=== PATIENT | female | born 1975 | race Hispanic/Latino ===

== ENCOUNTER 2016-12-21 13:58 | Emergency (ER) | payer OTHER ==
[~2016-12-21] VITALS: Ht 154.9 cm; Wt 68.2 kg
[~2016-12-21 13:58] MED LIST: DICY10CA13 PO; OMEP10CA2 PO; PEG4000S3 PO; SERT100T9 PO; TRAM50TA2 PO
[2016-12-21 14:01] VITALS: BP 142/99; PULSE 95; RESP 16; O2SAT 100
[2016-12-21] MEDS ORDERED: ELET40TA9 AD (14:08)
[2016-12-21] MEDS ORDERED: OMEP20CA11 PO (14:08)
[2016-12-21] MEDS ORDERED: DULO60CA42 PO (14:08)
[2016-12-21] MEDS ORDERED: BUPR-97 PO (14:08)
[2016-12-21] MEDS ORDERED: DICL100G30 TOP (14:08)
[2016-12-21] MEDS ORDERED: RES15 PO (14:08)
--- NOTE | 2016-12-21 15:05 | ED.REPORT ---
HPI-Abd Pain F 40 and Over Date of Service Dec 21, 2016 ED Provider: Tam Mccracken DO The patient is a 41 year old female with history of diverticulitis s/p partial colectomy, and chronic constipation, who presents to the emergency department complaining of lower abdominal pain that began last night. She has also noticed intermittent diarrhea and constipation, and abdominal bloating. She notes hard palate E stool with associated mixed diarrhea. She denies fever, chills, vomiting, bloody stools, melena, dysuria or urinary symptoms. Nursing Notes Stated Complaint: LOWER ABDOMINAL PAIN Chief Complaint: Female Abdominal Pain Nursing Notes Reviewed: Yes Allergies: Coded Allergies: morphine (Verified Allergy, Severe, Rash,Itching,, 12/21/16) Scheduled Bupropion ER (Wellbutrin XL) 150 Mg Tab.er.24h 150 MG PO DAILY Diclofenac Sodium (Diclofenac Sodium) 1 % Gel..gram. 1 APPLIC TOP HS Duloxetine (Cymbalta) 60 Mg Capsule.dr 60 MG PO DAILY Omeprazole (Omeprazole) 20 Mg Capsule.dr 20 MG PO DAILY Polyethylene Glycol 3350 (Miralax) 17 Gm Powd.pack 17 GM PO DAILY Scheduled PRN Eletriptan HBr (Relpax) 40 Mg Tablet 1 TAB AD DAILY PRN PRN Headache Temazepam (Temazepam) 15 Mg Capsule 15 MG PO HS PRN PRN For Insomnia Tramadol (Tramadol) 50 Mg Tablet 50 MG PO Q4 PRN PRN For Pain General Time Seen by MD: 14:41 Chief Complaint Abdominal pain Hx Obtained From: Patient Arrived By: Walk-in Sudden in Onset?: Yes Onset Occurred: Yesterday Symptom Duration: Since onset Progression since Onset: Constant Location: : Abdomen lower Quality: Painful Severity: Current: Moderate Severity: Maximum: Moderate Recent Healthcare: No recent hospitalization Similar Sx Previous: Yes Past Medical History Past Medical History Pedal edema Endometriosis Sleep apnea IBS Diverticulitis Anxiety Hx of previous suicide attempt Reports: Depression, Migraines, Urinary tract infection Past Surgical History Partial colectomy Complete hysterectomy Reports: Appendectomy, Hysterectomy Family History Noncontributory Smoking History Current Every Day Smoker Social History The patient recently moved to the area from [place], [place]. Alcohol Use: "Social" Drug Use: Denies drug use Other Social History: Good social support, Local resident Ambulatory Status Independent Review of Systems Constitutional: Denies: Chills, Fever GI: Reports: Abdominal pain, Constipation, Diarrhea, Denies: Bloody/tarry stool, Hematemesis, Hematochezia, Melena, Nausea, Vomiting Female: Denies: Dysuria, Hematuria, Urinary frequency, Urinary urgency, Urination decreased, Urination increased Complete sys rev & neg: except as marked. Physical Exam Vital Signs Vital Signs (First) Date Time Temp Pulse Resp B/P Pulse Ox O2 Delivery O2 Flow Rate FiO2 12/21/16 14:01 36.3 95 16 142/99 100 Room Air Initial VS: Reviewed Head / Eyes: Atraumatic, Normocephalic, PERRL ENT: Mucous membranes moist, Conjunctiva normal, No scleral icterus Neck: Supple, Non-tender, Full range of motion Lymphatic: No lymphadenopathy Extremities: Vascular intact, Neuro intact, No swelling, No tenderness Skin: Warm, Dry, No cyanosis Neurologic: Alert, Oriented, Nonfocal Psychiatric: Mood/affect normal, Behavior normal, Normal thought content General/Constitutional: Awake, Alert Respiratory / Chest: Breath sounds NL, Breath sounds = bilat, No respiratory distress, No rales, No rhonchi, No wheezing, No stridor Cardiovascular: Heart rate NL, Regular rhythm, Heart sounds NL, Peripheral circulation NL Abdomen: Soft, No guarding, No rebound, BS normoactive, No distention, No hernia, No palpable mass, No pulsatile mass Lower abdominal tenderness Back: Inspection NL Re-Eval/Medical Decision Med Decision/Clinical Course Overall clinical history and prior records suggest a history of chronic constipation with probably acute exacerbation. She does not have an active bowel regimen at this time. She is given a bottle of magnesium citrate now, I recommended MiraLAX daily and a mineral oil enema. Her abdominal exam is benign without focal rebound guarding or significant tenderness and she will attempt a bowel regimen and either return to the ER if worse or follow-up with her GI doctor early next week. Source of Hx: Old records Re-Evaluation/Progress : Time of Eval: 15:25 Re-Evaluation/Progress Note: Rechecked the patient. She reports having more hard pellet stools versus diarrhea. She believes her symptoms are more consistent with her chronic constipation. Discussed plan for bowel prep and discharge. All questions were addressed. Counseled Regarding: Diagnosis, Need for follow-up, When/why to return to ED Discharge & Departure Primary Impression: Constipation Constipation type: unspecified constipation type Qualified Code: K59.00 - Constipation, unspecified Disposition: Home Discharge Condition All VS Reviewed: Yes Condition: Improved Patient Instructions: Constipation (ED), Diverticulitis (ED) Additional Instructions: Thank you for entrusting us with your care today. Your history and physical exam findings are consistent with constipation. Start taking the Miralax once daily until you are having regular soft stools then you can decrease this to once every 1-3 days as needed. Use the mineral oil enema tonight. Call your regular doctor on Friday to schedule a followup appointment. Please return to the emergency department if you develop increased pain, vomiting, fever, or any other new or concerning symptoms. Referrals: Argelia Bolden (PCP) Scribe Attestation Portions of this note were transcribed by Magalie Richards. I, Dr. Mccracken personally performed the history, physical exam and medical decision-making; I reviewed and confirmed the accuracy of the information in the transcribed note. Signed by: Phil Stearns, 12/21/2016 at 1545. copies to: Argelia Bolden Timothy S DO Dec 21, 2016 15:05 Magalie Richards Dec 21, 2016 15:07
[2016-12-21] MEDS ORDERED: POLY17PO6 PO (15:33)
[2016-12-21 15:51] VITALS: BP 131/93; PULSE 105; RESP 18; O2SAT 98
== END 2016-12-21 15:52 | disposition home or self-care (01) ==
LOC: SED 13:58
DX: K59.00 Constipation, unspecified (principal); F17.200 Nicotine dependence, unspecified, uncomplicated; Z90.710 Acquired absence of both cervix and uterus; Z88.5 Allergy status to narcotic agent

== ENCOUNTER 2016-12-26 11:25 | Emergency (ER) | payer OTHER ==
[~2016-12-26] VITALS: Ht 154.9 cm; Wt 68.2 kg
[~2016-12-26 11:25] MED LIST changes: +BUPR-97 PO; +DICL100G30 TOP; -DICY10CA13 PO; +DULO60CA42 PO; +ELET40TA9 AD; -OMEP10CA2 PO; +OMEP20CA11 PO; -PEG4000S3 PO; +POLY17PO6 PO; +RES15 PO; -SERT100T9 PO
[2016-12-26 11:42] VITALS: BP 136/87; PULSE 94; RESP 16; O2SAT 98
[2016-12-26] MEDS ORDERED: PREG75CA PO (11:46)
[2016-12-26 12:13] LABS: BASOPHILS % (AUTO) 0.1 % (0-3); EOSINOPHILS % (AUTO) 2.2 % (0-5); MONOCYTES % (AUTO) 4.5 % (4-12); Mean Corpuscular Hemoglobin 29.9 pg (27.0-35.0); Mean Corpuscular Volume 92.1 fL (81-100); NEUTROPHILS % (AUTO) 66.2 % (40-74); Platelet Count 296 bil/L (150-400)
--- NOTE | 2016-12-26 14:14 | ED.REPORT ---
HPI-Abd Pain F 40 and Over Date of Service Dec 26, 2016 ED Provider: Doc,Ed MD History of Present Illness: 41yo female with ongoing LLQ abdominal pain x 1 week. Worse in past 2-3 days. She was seen in this ED on 12/21, treated symptomatically for constipation. She has a history of colectomy due to diverticulitis. Her pain today feels similar to previous exacerbations of diverticulitis. Nursing Notes Stated Complaint: LOWER LEFT ABDOMINAL PAIN Chief Complaint: Female Abdominal Pain Nursing Notes Reviewed: Yes Allergies: Coded Allergies: morphine (Verified Allergy, Severe, Rash,Itching,, 12/26/16) Scheduled Amoxicillin/Clav K 500-125 mg (Augmentin 500) 1 Tab Tab 1 TABLET PO TID Bupropion ER (Wellbutrin XL) 150 Mg Tab.er.24h 150 MG PO DAILY Diclofenac Sodium (Diclofenac Sodium) 1 % Gel..gram. 1 APPLIC TOP HS Duloxetine (Cymbalta) 60 Mg Capsule.dr 60 MG PO DAILY Omeprazole (Omeprazole) 20 Mg Capsule.dr 20 MG PO DAILY Polyethylene Glycol 3350 (Miralax) 17 Gm Powd.pack 17 GM PO DAILY Pregabalin (Lyrica) 75 Mg Capsule 75 MG PO BID Scheduled PRN Hydrocodone-Acetaminophen 5-325 mg (Hydrocodone-Acetaminophen 5-325 mg) 1 Each Tablet 1 TABLET PO QID PRN PRN For Pain Temazepam (Temazepam) 15 Mg Capsule 15 MG PO HS PRN PRN For Insomnia Tramadol (Tramadol) 50 Mg Tablet 50 MG PO Q4 PRN PRN For Pain General Time Seen by MD: 14:13 Chief Complaint Abdominal pain Hx Obtained From: Patient Arrived By: Walk-in Sudden in Onset?: No Onset Occurred: 1 week ago Symptom Duration: Waxes and wanes Progression since Onset: Gradually worsening Location: : LLQ Quality: Same as prior Radiation: : Does not radiate Severity: Current: Moderate Severity: Maximum: Severe Associated with: Reports: Constipation, Denies: Diarrhea, Fever, Nausea, Vomiting Pertinent Negative: Pt denies other symptoms Recent Healthcare: Recent doctor visit Similar Sx Previous: Yes Risk Factors )( AAA Risk Stratification Risk factors reviewed Ectopic Risk Stratification No risk factors CAD Risk Stratification Risk factors reviewed TAD Risk Stratification Risk factors N/A Past Medical History Past Medical History Pedal edema Endometriosis Sleep apnea IBS Diverticulitis Anxiety Hx of previous suicide attempt Reports: Depression, Migraines, Urinary tract infection Past Surgical History Partial colectomy Complete hysterectomy Reports: Appendectomy, Hysterectomy Family History Noncontributory Smoking History Current Every Day Smoker Social History The patient recently moved to the area from [place], [place]. Alcohol Use: "Social" Drug Use: Denies drug use Other Social History: Good social support, Local resident Ambulatory Status Independent Review of Systems Constitutional: Denies: Chills, Fever Cardiovascular: Denies: Chest pain GI: Reports: Abdominal pain, Constipation, Denies: Nausea, Vomiting Female: Denies: Flank pain Musculoskeletal: Denies: Back pain Complete sys rev & neg: except as marked. Physical Exam Vital Signs Vital Signs (First) Date Time Temp Pulse Resp B/P Pulse Ox O2 Delivery O2 Flow Rate FiO2 12/26/16 11:42 36.4 94 16 136/87 98 Room Air Initial VS: Vital signs normal General/Constitutional: Awake, Alert, No acute distress, Well hydrated, Well nourished, Not toxic appearing Respiratory / Chest: Breath sounds NL, Breath sounds = bilat, No respiratory distress Cardiovascular: Heart rate NL, Regular rhythm, Heart sounds NL Abdomen: BS normoactive Tenderness/Guarding/Rebound: Positive: Guarding voluntary, Tender LLQ... ( Moderate) Interpretation & Diagnostics Lab Results Interpretation Result Diagram: 12/26/16 1200 12/26/16 1200 Test 12/26/16 12:00 12/26/16 14:47 White Blood Count 16.6th/mm3 (3.8-10.1) Red Blood Count 4.05mil/mm3 (3.90-5.20) Hemoglobin 12.1g/dL (12.0-15.6) Hematocrit 37.3% (35.0-46.0) Mean Corpuscular Volume 92.1fL (81-100) Mean Corpuscular Hemoglobin 29.9pg (27.0-35.0) Mean Corpuscular Hemoglobin Concent 32.4% (32.0-37.0) Red Cell Distribution Width 14.5% (12.3-15.4) Platelet Count 296bil/L (150-400) Neutrophils (%) (Auto) 66.2% (40-74) Lymphocytes (%) (Auto) 26.8% (14-46) Monocytes (%) (Auto) 4.5% (4-12) Eosinophils (%) (Auto) 2.2% (0-5) Basophils (%) (Auto) 0.1% (0-3) Sodium Level 135mEq/L (134-144) Potassium Level 4.2mEq/L (3.5-5.2) Chloride Level 101mEq/L (97-108) Carbon Dioxide Level 19mmol/L (18-29) Blood Urea Nitrogen 14mg/dL (6-24) Creatinine 0.57mg/dL (0.57-1.00) Estimat Glomerular Filtration Rate 166mL/min (>59) Glucose Level 106mg/dL (60-99) Calcium Level 9.1mg/dL (8.5-10.1) Magnesium Level 2.0mg/dL (1.6-2.6) Total Bilirubin 0.2mg/dL (0.0-1.2) Aspartate Amino Transf (AST/SGOT) 14U/L (0-50) Alanine Aminotransferase (ALT/SGPT) 12U/L (0-32) Alkaline Phosphatase 101U/L (25-150) Total Protein 6.6g/dL (6.4-8.4) Albumin 3.9g/dL (3.4-5.0) Lipase 68U/L (13-60) Hold Mayo Top Tube Received (Received) Urine Color Straw (YELLOW) Urine Appearance Hazy (CLEAR,HAZY) Urine pH 6.0 (5.0-8.0) Urine Specific [place] 1.005 (1.003-1.035) Urine Protein Negativemg/dL (NEG,TRACE) Urine Glucose (UA) Negativemg/dL (NEGATIVE) Urine Ketones Negativemg/dL (NEGATIVE) Urine Occult Blood Negative (NEGATIVE) Urine Nitrite Negative (NEGATIVE) Urine Bilirubin Negative (NEGATIVE) Urine Urobilinogen Normalmg/dL (NORMAL) Urine Leukocyte Esterase Negative (NEGATIVE) Urine RBC 0-2/hpf (0-2) Urine WBC 0-5/hpf (0-5) Urine Epithelial Cells Occasional/hpf (NONE-MOD) Urine Crystals None seen (NONE SEEN) Urine Bacteria None/hpf (NONE-FEW) Urine Hyaline Casts None/lpf (NONE) Urine Granular Casts None seen (NONE SEEN) Urine Waxy Casts None seen (NONE SEEN) Urine Red Blood Cell Casts None seen (NONE SEEN) Urine White Blood Cell Casts None seen (NONE SEEN) Urine Mucus None seen (None Seen) Urine Trichomonas None seen (NONE SEEN) Urine Yeast None (NONE SEEN) Urinalysis Comment None Urine Culture Reflexed Not indicated CT Abd / Pelvis Interpretation PROCEDURE: CT ABDOMEN AND PELVIS WITH CONTRAST ([id number]) INDICATIONS: LLQ pain, worsening TECHNIQUE: After the administration of oral and intravenous contrast, 5 mm thick sections acquired from the diaphragms to the symphysis. 5 mm thick coronal and sagittal reformats were performed. For radiation dose reduction, the following was used: automated exposure control, adjustment of mA and/or kV according to patient size. COMPARISON: [facility], CT, CT ABD PELVIS W CON, 07/06/2016, 19:52. FINDINGS: Image quality: Excellent. ABDOMEN: Lung bases: Lung bases are clear. Heart size is normal. Solid organs: There is hypoattenuation of the liver consistent with fatty infiltration as well as a small region of focal fatty change anteriorly in the left hepatic lobe. The gallbladder is surgically absent. There is mild biliary ductal dilatation likely related to prior cholecystectomy. The spleen is normal in size. Pancreas enhances normally. No adrenal nodules. Kidneys are normal in size and enhancement, without hydronephrosis. Peritoneum and bowel: Stomach, small bowel, and colon loops are normal in caliber and wall thickness. There are surgical clips adjacent to the cecum likely related to prior appendectomy. Colonic diverticula are demonstrated without acute diverticulitis. There is mild to moderate colonic stool distention which may reflect constipation. No free fluid or air. Nodes and vessels: No retroperitoneal or mesenteric adenopathy. Aorta and inferior vena cava are normal in caliber. Miscellaneous: No ventral hernias. There are postsurgical changes within the anterior abdominal wall. PELVIS: Genitourinary: Bladder wall thickness is normal. Miscellaneous: No inguinal hernias or adenopathy. Bones: No suspicious bony lesions. No vertebral body compression fractures. IMPRESSION: 1. Diverticulosis without acute diverticulitis. 2. Mild to moderate colonic stool distention may reflect constipation. 3. Hepatic steatosis. 4. Mild biliary ductal dilatation likely related to prior cholecystectomy. Re-Eval/Medical Decision Med Decision/Clinical Course Pt's labs/CT reviewed with Dr. Bucio who concurs with plan to treat empirically for diverticulitis. Counseled Regarding: Diagnosis, Lab results, Need for follow-up, When/why to return to ED Discharge & Departure Primary Impression: Lower abdominal pain Additional Impression: Diverticulosis Diverticulosis site: diverticulosis of large intestine Diverticulosis bleeding: diverticulosis without bleeding Qualified Code: K57.30 - Diverticulosis of large intestine without perforation or abscess without bleeding Disposition: Home Patient Instructions: Acute Abdominal Pain (ED) Additional Instructions: High fiber diet, continue meds for constipation. Pleaese take antibiotic as directed, and use an over the counter probiotic for 1 week beyond end of antibiotics. Use pain meds sparingly, as they are constipating. Return to ER if anything worsens. Referrals: Lilli Costa (PCP) 2-3 days recheck EDSupervising Provider for APC: Stanislav Bucio MD copies to: Lilli Costa Christopher R PAC Dec 26, 2016 14:14
[2016-12-26] MEDS ORDERED: 0.9% Sodium Chloride 1,000 ML IV ONE (14:27)
[2016-12-26] MEDS ORDERED: Ondansetron 2 mg/mL 2 mL Inj IVPUSH ONE (14:30)
[2016-12-26] MEDS: HYDROmorphone 0.5 mg/0.5 mL iSecure Syringe IVPUSH PRN ×3 (14:39→15:32)
--- NOTE | 2016-12-26 15:02 | DRSVH ---
PROCEDURE: CT ABDOMEN AND PELVIS WITH CONTRAST ([id number]) INDICATIONS: LLQ pain, worsening TECHNIQUE: After the administration of oral and intravenous contrast, 5 mm thick sections acquired from the diap hragms to the symphysis. 5 mm thick coronal and sagittal reformats were performed. For radiation do se reduction, the following was used: automated exposure control, adjustment of mA and/or kV accordi ng to patient size. COMPARISON: [facility], CT, CT ABD PELVIS W CON, 07/06/2016, 19:52. FINDINGS: Image quality: Excellent. ABDOMEN: Lung bases: Lung bases are clear. Heart size is normal. Solid organs: There is hypoattenuation of the liver consistent with fatty infiltration as well as a s mall region of focal fatty change anteriorly in the left hepatic lobe. The gallbladder is surgically absent. There is mild biliary ductal dilatation likely related to prior cholecystectomy. The splee n is normal in size. Pancreas enhances normally. No adrenal nodules. Kidneys are normal in size an d enhancement, without hydronephrosis. Peritoneum and bowel: Stomach, small bowel, and colon loops are normal in caliber and wall thickness . There are surgical clips adjacent to the cecum likely related to prior appendectomy. Colonic dive rticula are demonstrated without acute diverticulitis. There is mild to moderate colonic stool diste ntion which may reflect constipation. No free fluid or air. Nodes and vessels: No retroperitoneal or mesenteric adenopathy. Aorta and inferior vena cava are no rmal in caliber. Miscellaneous: No ventral hernias. There are postsurgical changes within the anterior abdominal wal l. PELVIS: Genitourinary: Bladder wall thickness is normal. Miscellaneous: No inguinal hernias or adenopathy. Bones: No suspicious bony lesions. No vertebral body compression fractures. IMPRESSION: 1. Diverticulosis without acute diverticulitis. 2. Mild to moderate colonic stool distention may reflect constipation. 3. Hepatic steatosis. 4. Mild biliary ductal dilatation likely related to prior cholecystectomy. Dictated by: Jamel Low M.D. on 12/26/2016 at 14:54 Approved by: Jamel Low M.D. on 12/26/2016 at 15:00
[2016-12-26 15:06] LABS: APPEARANCE,URINE HAZY (CLEAR,HAZY); COLOR,URINE STRAW (YELLOW); OCCULT BLOOD,URINE NEGATIVE (NEGATIVE); UROBILINOGEN,URINE NORMAL (NORMAL)
[2016-12-26] MEDS ORDERED: HYDR-4003 PO (16:13)
[2016-12-26] MEDS ORDERED: AMOX1TAB11 PO (16:13)
[2016-12-26 16:26] VITALS: BP 118/81; PULSE 72; RESP 18; O2SAT 99
== END 2016-12-26 16:27 | disposition home or self-care (01) ==
LOC: SED 11:25
DX: K57.30 Diverticulosis of large intestine without perforation or abscess without bleeding (principal); F17.200 Nicotine dependence, unspecified, uncomplicated; Z87.440 Personal history of urinary (tract) infections; Z88.5 Allergy status to narcotic agent
CPT/HCPCS: 36415; 74177; 80053; 81000; 83690; 83735; 85025; 96361; 96374; 96375; 99285; J1170; J2405; J7030; Q9967

== ENCOUNTER 2016-12-27 07:46 | Day surgery (SDC) | payer OTHER ==
[~2016-12-27 07:46] MED LIST changes: +AMOX1TAB11 PO; -ELET40TA9 AD; +HYDR-4003 PO; +PREG75CA PO
[2016-12-27] MEDS ORDERED: 0.9% Sodium Chloride 500 ML IV ONE (08:35)
[2016-12-27] MEDS ORDERED: MetoCLOpramide 5 mg/mL 2 mL Inj IVPUSH PRN (08:35)
[2016-12-27] MEDS ORDERED: 0.9% Sodium Chloride 500 ML IV PRN (08:40)
[2016-12-27] MEDS ORDERED: SODIUM CHLORIDE 0.9% IV PRN (09:10)
[2016-12-27] MEDS ORDERED: VALPROATE SODIUM IV PRN (09:10)
== END 2016-12-27 23:59 | disposition home or self-care (01) ==
LOC: MOCO 07:46
PROVIDERS: ATTEND Psychiatry & Neurology Neurology
DX: G43.901 Migraine, unspecified, not intractable, with status migrainosus (principal); J32.8 Other chronic sinusitis; I10 Essential (primary) hypertension; F32.9 Major depressive disorder, single episode, unspecified; F17.210 Nicotine dependence, cigarettes, uncomplicated; G89.29 Other chronic pain; Z86.010 Personal history of colon polyps; Z79.890 Hormone replacement therapy; Z90.710 Acquired absence of both cervix and uterus; Z53.9 Procedure and treatment not carried out, unspecified reason

== ENCOUNTER 2017-01-18 13:00 | Emergency (ER) | payer OTHER ==
[~2017-01-18] VITALS: Ht 154.9 cm; Wt 68.2 kg
[2017-01-18 13:13] VITALS: BP 144/101; PULSE 94; RESP 18; O2SAT 100
--- NOTE | 2017-01-18 13:29 | ED.REPORT ---
HPI-Abd Pain F 40 and Over Date of Service January 18, 2017 ED Provider: [facility] is [facility] 41 year [facility] female with history of diverticulitis s/p partial colectomy, anxiety and depression with prior suicidal attempt, who presents to [facility] ED with intermittent LLQ abdominal pain accompanied by nausea x 1 week. She has been seen in ED multiple times in the past for the same problem and treatment of constipation. Her last ED visit was on 12/26/16 for LLQ abdominal pain. She has a GI doctor in [place], Dr. Carranza, whom she sees regularly. She is due for colonoscopy with him soon. Patient denies fever, chills, vomiting. She states that physical activity makes the pain worse. Pain medications, such as Tramadol makes it better. Patient also reports lifting heavy boxes while for 3 days prior to symptom onset. Nursing Notes Stated Complaint: LOWER LT ABD PAIN,HEADACHE Chief Complaint: Female Abdominal Pain Nursing Notes Reviewed: Yes Allergies: Coded Allergies: morphine (Verified Allergy, Severe, Rash,Itching,, 12/26/16) Scheduled Amoxicillin/Clav K 500-125 mg (Augmentin 500) 1 Tab Tab 1 TABLET PO TID Bupropion ER (Wellbutrin XL) 150 Mg Tab.er.24h 150 MG PO DAILY Ciprofloxacin (Ciprofloxacin) 500 Mg Tablet 500 MG PO BID Diclofenac Sodium (Diclofenac Sodium) 1 % Gel..gram. 1 APPLIC TOP HS Duloxetine (Cymbalta) 60 Mg Capsule. 60 MG PO DAILY Metronidazole (Flagyl) 500 Mg Tablet 500 MG PO Q8H Omeprazole (Omeprazole) 20 Mg Capsule. 20 MG PO DAILY Polyethylene Glycol 3350 (Miralax) 17 Gm Powd.pack 17 GM PO DAILY Pregabalin (Lyrica) 75 Mg Capsule 75 MG PO BID Scheduled PRN Hydrocodone-Acetaminophen 5-325 mg (Hydrocodone-Acetaminophen 5-325 mg) 1 Each Tablet 1 TABLET PO QID PRN PRN For Pain Temazepam (Temazepam) 15 Mg Capsule 15 MG PO HS PRN PRN For Insomnia Tramadol (Tramadol) 50 Mg Tablet 50 MG PO Q4 PRN PRN For Pain General Time Seen by MD: 13:21 Chief Complaint Abdominal pain, Nausea Hx Obtained From: Patient Arrived By: Walk-in Sudden in Onset?: No Onset Occurred: 1 week ago Context of Onset: Other (h/o diverticulosis ) Symptom Duration: 1 week Location: : LLQ Quality: Throbbing Radiation: : Does not radiate Severity: Current: Moderate Associated with: Reports: Nausea Pertinent Negative: Pt denies other symptoms Risk Factors )( AAA Risk Stratification Smoking Risk factors reviewed CAD Risk Stratification Smoking Risk factors reviewed Past Medical History Past Medical History Pedal edema Endometriosis Sleep apnea IBS Diverticulitis Anxiety Hx of previous suicide attempt Reports: Depression, Migraines, Urinary tract infection Past Surgical History Partial colectomy Complete hysterectomy Reports: Appendectomy, Hysterectomy Family History Noncontributory Smoking History Current Every Day Smoker Social History The patient recently moved to the area from [place], [place]. Alcohol Use: "Social" Drug Use: Denies drug use Other Social History: Good social support, Local resident Ambulatory Status Independent Review of Systems Basic Review of Systems Eyes: Vision NL ENT: Hearing NL Hematologic: No bleeding, No bruising Skin: No rash Neurologic: NL mental status, No weakness, No numbness Constitutional: Denies: Chills, Fatigue, Fever, Recent wt loss Respiratory: Denies: Dyspnea on exertion, Shortness of breath Cardiovascular: Denies: Chest pain, Edema GI: Reports: Abdominal pain (LLQ), Constipation, Diarrhea, Nausea, Denies: Bloody/tarry stool Female: Denies: Dysuria, Flank pain, Hematuria Musculoskeletal: Denies: Back pain, Extremity swelling, Joint pain Physical Exam Vital Signs Vital Signs (First) Date Time Temp Pulse Resp B/P Pulse Ox O2 Delivery O2 Flow Rate FiO2 01/18/17 13:13 36.4 94 18 144/101 100 Room Air Initial VS: Reviewed, Vital signs abnormal (BP 144/101, P 94) Head / Eyes: Atraumatic, Normocephalic ENT: Mucous membranes moist, Conjunctiva normal, No scleral icterus Neck: Supple, Non-tender, Full range of motion Lymphatic: No lymphadenopathy Extremities: Vascular intact, Neuro intact, No swelling, No tenderness Skin: Warm, Dry, No cyanosis Neurologic: Alert, Oriented, Nonfocal Psychiatric: Mood/affect normal, Behavior normal, Normal thought content General/Constitutional: Awake, Alert, No acute distress, Well appearing, Well developed, Well nourished Respiratory / Chest: Breath sounds NL, No respiratory distress, No rales, No rhonchi, No wheezing Cardiovascular: Heart rate NL, Regular rhythm Abdomen: Atraumatic, Soft, No guarding, No rebound, BS normoactive, No distention Tenderness/Guarding/Rebound: Positive: Tender LLQ... (Moderate) Interpretation & Diagnostics Lab Results Interpretation Result Diagram: 01/18/17 1355 01/18/17 1355 Test 01/18/17 13:55 01/18/17 14:16 01/18/17 14:36 White Blood Count 10.3th/mm3 (3.8-10.1) Red Blood Count 4.43mil/mm3 (3.90-5.20) Hemoglobin 13.5g/dL (12.0-15.6) Hematocrit 40.0% (35.0-46.0) Mean Corpuscular Volume 90.3fL (81-100) Mean Corpuscular Hemoglobin 30.5pg (27.0-35.0) Mean Corpuscular Hemoglobin Concent 33.8% (32.0-37.0) Red Cell Distribution Width 14.3% (12.3-15.4) Platelet Count 321bil/L (150-400) Neutrophils (%) (Auto) 60.1% (40-74) Lymphocytes (%) (Auto) 33.4% (14-46) Monocytes (%) (Auto) 4.8% (4-12) Eosinophils (%) (Auto) 1.0% (0-5) Basophils (%) (Auto) 0.4% (0-3) Sodium Level 139mEq/L (134-144) Potassium Level 3.8mEq/L (3.5-5.2) Chloride Level 102mEq/L (97-108) Carbon Dioxide Level 21mmol/L (18-29) Blood Urea Nitrogen 8mg/dL (6-24) Creatinine 0.49mg/dL (0.57-1.00) Estimat Glomerular Filtration Rate 197mL/min (>59) Glucose Level 111mg/dL (60-99) Calcium Level 9.8mg/dL (8.5-10.1) Magnesium Level 2.2mg/dL (1.6-2.6) Total Bilirubin 0.2mg/dL (0.0-1.2) Aspartate Amino Transf (AST/SGOT) 14U/L (0-50) Alanine Aminotransferase (ALT/SGPT) 15U/L (0-32) Alkaline Phosphatase 92U/L (25-150) Total Protein 7.2g/dL (6.4-8.4) Albumin 4.3g/dL (3.4-5.0) Lipase 38U/L (13-60) Hold Mayo Top Tube Received (Received) Urine Color Yellow (YELLOW) Urine Appearance Clear (CLEAR,HAZY) Urine pH 7.0 (5.0-8.0) Urine Specific [place] 1.015 (1.003-1.035) Urine Protein Negativemg/dL (NEG,TRACE) Urine Glucose (UA) Negativemg/dL (NEGATIVE) Urine Ketones Negativemg/dL (NEGATIVE) Urine Occult Blood Negative (NEGATIVE) Urine Nitrite Negative (NEGATIVE) Urine Bilirubin Negative (NEGATIVE) Urine Urobilinogen Normalmg/dL (NORMAL) Urine Leukocyte Esterase Small (NEGATIVE) Urine RBC 0-2/hpf (0-2) Urine WBC 6-10/hpf (0-5) Urine Epithelial Cells Moderate/hpf (NONE-MOD) Urine Crystals None seen (NONE SEEN) Urine Bacteria Few/hpf (NONE-FEW) Urine Hyaline Casts None/lpf (NONE) Urine Granular Casts None seen (NONE SEEN) Urine Waxy Casts None seen (NONE SEEN) Urine Red Blood Cell Casts None seen (NONE SEEN) Urine White Blood Cell Casts None seen (NONE SEEN) Urine Mucus None seen (None Seen) Urine Trichomonas None seen (NONE SEEN) Urine Yeast None (NONE SEEN) Urinalysis Comment None Urine Culture Reflexed Indicated Lab Results Interpretation: Mildly elevated white blood count, 10.3 Urinalysis Interpretation Positive leukocyte est, Positive WBC's Re-Eval/Medical Decision Med Decision/Clinical Course In summary, this is a 41 year old female with history of diverticulitis who presents with LLQ abdominal pain for 1 week. Blood work significant for WBC of 10.3 and UA is positive for leukocyte esterase and WBC 6-10. It is believed that patient's abdominal pain is related to diverticulitis and a urinary tract infection. She will be discharged home with oral antibiotics, Clindamycin and Metronidazole. She will follow up with her PCP within the next week. Discharge & Departure Shift Change Sign-Out Response to Therapy: Improved Primary Impression: Abdominal pain Abdominal location: left lower quadrant Qualified Code: R10.32 - Left lower quadrant pain Additional Impressions: Diverticulitis Urinary tract infection Disposition: Home Discharge Condition All VS Reviewed: Yes Condition: Stable Patient Instructions: Diverticulitis (ED), Urinary Traction Infection in Older Adults (ED) Additional Instructions: Thank you for entrusting us with your care today. I do not believe there is a serious cause for your pain. Your symptoms are most likely due to diverticulitis and a urinary tract infection. I will prescribe you an antibiotic, take as directed. I recommend you follow-up with your primary care provider. Call Friday to schedule an appointment. Return if you develop vomiting, bloody stool, constipation, fever, increased back pain or any new or worsening symptoms. Referrals: Lilli Costa (PCP) EDSupervising Provider for APC: Allen Mckeon MDibflako Attestation Portions of this note were transcribed by Kim Narayanan. I, Dr. Mckeon personally performed the history, physical exam and medical decision-making; I reviewed and confirmed the accuracy of the information in the transcribed note. Signed by: Phil Alexandre, 01/18/17 and 1517. Attending Statement Discussed patient with resident and I agree patient independently and agree with plan as above. In brief 41-year-old female history of bowel resection, diverticulitis presenting with left lower quadrant pain times several days. She reports it feels similar to her previous episodes of diverticulitis. Her vital signs are stable. Her white blood count 10,000. Her urine suggests UTI. Her abdomen is soft with no rebound or guarding. We will treat for presumptive diverticulitis with Cipro Flagyl follow-up with primary doctor in two days return precautions. [place] diet. Return if pain or worsening abdominal pain, fevers, nausea vomiting. copies to: Lilli Costa Ben M MD January 18, 2017 13:29 Smita Roth DO January 18, 2017 14:26 KIM NARAYANAN January 18, 2017 15:10
[2017-01-18 14:10] LABS: BASOPHILS % (AUTO) 0.4 % (0-3); MONOCYTES % (AUTO) 4.8 % (4-12); Mean Corpuscular Hemoglobin 30.5 pg (27.0-35.0); Mean Corpuscular Volume 90.3 fL (81-100); NEUTROPHILS % (AUTO) 60.1 % (40-74); Platelet Count 321 bil/L (150-400)
[2017-01-18 14:27] LABS: Magnesium 2.2 mg/dL (1.6-2.6)
[2017-01-18 14:47] LABS: APPEARANCE,URINE CLEAR (CLEAR,HAZY); COLOR,URINE YELLOW (YELLOW); OCCULT BLOOD,URINE NEGATIVE (NEGATIVE); UROBILINOGEN,URINE NORMAL (NORMAL)
[2017-01-18] MEDS ORDERED: CIPR-198 PO (15:11)
[2017-01-18] MEDS ORDERED: METR500T PO (15:11)
[2017-01-18] MEDS ORDERED: oxyCODONE-Acetamin 5-325 mg Tablet PO ONE ×2 (15:35→15:45)
[2017-01-18 15:45] VITALS: BP 136/93; PULSE 86; RESP 16; O2SAT 100
== END 2017-01-18 15:44 | disposition home or self-care (01) ==
LOC: SED 13:00
DX: K57.92 Diverticulitis of intestine, part unspecified, without perforation or abscess without bleeding (principal); N39.0 Urinary tract infection, site not specified; F17.200 Nicotine dependence, unspecified, uncomplicated; Z88.5 Allergy status to narcotic agent

== ENCOUNTER 2017-02-18 11:57 | Emergency (ER) | payer OTHER ==
[~2017-02-18] VITALS: Ht 154.9 cm; Wt 72.7 kg
[~2017-02-18 11:57] MED LIST changes: +CIPR-198 PO; +METR500T PO
[2017-02-18 11:59] VITALS: BP 138/86; PULSE 86; RESP 16; O2SAT 100
--- NOTE | 2017-02-18 12:11 | ED.REPORT ---
HPI-Abd Pain F 40 and Over Date of Service Feb 18, 2017 ED Provider: Allen Mckeon MD A 41 year old female with a history of diverticulitis, endometriosis, IBS and anxiety complaining of stabbing abdominal pain. The pain began last night and is similar to the pain she has felt before when she has been diagnosed with diverticulitis. The pt also admits to back pain, diarrhea two days ago that has since resolved, and current constipation but denies fever, vaginal discharge, vaginal bleeding, vomiting or dysuria. The pt was seen on 01/18/2017 for similar symptoms, which improved with antibiotics. Nursing Notes Stated Complaint: ABDOMINAL PAIN Chief Complaint: Female Abdominal Pain Nursing Notes Reviewed: Yes Allergies: Coded Allergies: morphine (Verified Allergy, Severe, Rash,Itching,, 02/18/17) Scheduled Amoxicillin/Clav K 500-125 mg (Augmentin 500) 1 Tab Tab 1 TABLET PO TID Bupropion ER (Wellbutrin XL) 150 Mg Tab.er.24h 150 MG PO DAILY Ciprofloxacin (Ciprofloxacin) 500 Mg Tablet 500 MG PO BID Ciprofloxacin (Ciprofloxacin) 500 Mg Tablet 500 MG PO BID Diclofenac Sodium (Diclofenac Sodium) 1 % Gel..gram. 1 APPLIC TOP HS Duloxetine (Cymbalta) 60 Mg Capsule. 60 MG PO DAILY Metronidazole (Flagyl) 500 Mg Tablet 500 MG PO Q8H Metronidazole (Flagyl) 500 Mg Tablet 500 MG PO Q8H Omeprazole (Omeprazole) 20 Mg Capsule. 20 MG PO DAILY Polyethylene Glycol 3350 (Miralax) 17 Gm Powd.pack 17 GM PO DAILY Pregabalin (Lyrica) 75 Mg Capsule 75 MG PO BID Scheduled PRN Hydrocodone-Acetaminophen 5-325 mg (Hydrocodone-Acetaminophen 5-325 mg) 1 Each Tablet 1 TABLET PO QID PRN PRN For Pain Hydrocodone-Acetaminophen 5-325 mg (Hydrocodone-Acetaminophen 5-325 mg) 1 Each Tablet 1 TABLET PO Q4H PRN PRN For Pain Temazepam (Temazepam) 15 Mg Capsule 15 MG PO HS PRN PRN For Insomnia Tramadol (Tramadol) 50 Mg Tablet 50 MG PO Q4 PRN PRN For Pain General Time Seen by MD: 12:06 Chief Complaint Abdominal pain Hx Obtained From: Patient Arrived By: Walk-in Sudden in Onset?: Yes Onset Occurred: 1 day ago Symptom Duration: Since onset Recent Healthcare: No recent hospitalization, Recent doctor visit Similar Sx Previous: Yes Past Medical History Past Medical History Pedal edema Endometriosis Sleep apnea IBS Diverticulitis Anxiety Hx of previous suicide attempt Reports: Depression, Migraines, Urinary tract infection Past Surgical History Partial colectomy Complete hysterectomy Reports: Appendectomy, Hysterectomy Family History Noncontributory Smoking History Current Every Day Smoker Social History The patient recently moved to the area from [place], [place]. Alcohol Use: "Social" Drug Use: Denies drug use Other Social History: Good social support, Local resident Ambulatory Status Independent Review of Systems Constitutional: Denies: Fever Respiratory: Denies: Non-productive cough, Shortness of breath Cardiovascular: Denies: Chest pain GI: Reports: Abdominal pain, Constipation, Diarrhea (resolved), Denies: Vomiting Female: Denies: Dysuria, Vaginal bleeding - abnl, Vaginal discharge Complete sys rev & neg: except as marked. Physical Exam Vital Signs Vital Signs (First) Date Time Temp Pulse Resp B/P Pulse Ox O2 Delivery O2 Flow Rate FiO2 02/18/17 11:59 36.0 86 16 138/86 100 02/18/17 13:55 Room Air Initial VS: Reviewed General/Constitutional: Awake, Alert Respiratory / Chest: Atraumatic, Breath sounds NL, Breath sounds = bilat, No respiratory distress Cardiovascular: Heart rate NL, Regular rhythm, Heart sounds NL, No murmurs Abdomen: Atraumatic, Soft mild LLQ tenderness Back: Atraumatic, Full range of motion, No CVA tenderness Head / Eyes: Atraumatic, Normocephalic, PERRL, EOMI ENT: Atraumatic, Airway patent, Mucous membranes moist Skin: Atraumatic, Color NL, No rash, Warm, Dry Neurologic: Oriented X3, Speech NL, No motor deficits, No sensory deficits Neck: Atraumatic, Supple, Full range of motion Upper Extremity / MS: Atraumatic, Full range of motion Lower Extremity / Pelvis / MS: Atraumatic, Full range of motion Psychiatric: Affect NL, Mood NL Interpretation & Diagnostics Lab Results Interpretation Result Diagram: 02/18/17 1230 02/18/17 1230 Test 02/18/17 12:30 02/18/17 12:55 White Blood Count 9.7th/mm3 (3.8-10.1) Red Blood Count 4.06mil/mm3 (3.90-5.20) Hemoglobin 12.7g/dL (12.0-15.6) Hematocrit 38.1% (35.0-46.0) Mean Corpuscular Volume 93.8fL (81-100) Mean Corpuscular Hemoglobin 31.3pg (27.0-35.0) Mean Corpuscular Hemoglobin Concent 33.3% (32.0-37.0) Red Cell Distribution Width 15.1% (12.3-15.4) Platelet Count 273bil/L (150-400) Neutrophils (%) (Auto) 49.0% (40-74) Lymphocytes (%) (Auto) 39.9% (14-46) Monocytes (%) (Auto) 5.4% (4-12) Eosinophils (%) (Auto) 4.9% (0-5) Basophils (%) (Auto) 0.5% (0-3) Sodium Level 142mEq/L (134-144) Potassium Level 4.0mEq/L (3.5-5.2) Chloride Level 109mEq/L (97-108) Carbon Dioxide Level 22mmol/L (18-29) Blood Urea Nitrogen 14mg/dL (6-24) Creatinine 0.50mg/dL (0.57-1.00) Estimat Glomerular Filtration Rate 193mL/min (>59) Glucose Level 107mg/dL (60-99) Calcium Level 9.3mg/dL (8.5-10.1) Magnesium Level 2.0mg/dL (1.6-2.6) Total Bilirubin 0.2mg/dL (0.0-1.2) Aspartate Amino Transf (AST/SGOT) 26U/L (0-50) Alanine Aminotransferase (ALT/SGPT) 23U/L (0-32) Alkaline Phosphatase 111U/L (25-150) Total Protein 7.3g/dL (6.4-8.4) Albumin 4.0g/dL (3.4-5.0) Lipase 72U/L (13-60) Hold Mayo Top Tube Received (Received) Urine Color Yellow (YELLOW) Urine Appearance Clear (CLEAR,HAZY) Urine pH 6.0 (5.0-8.0) Urine Specific Williams 1.025 (1.003-1.035) Urine Protein Negativemg/dL (NEG,TRACE) Urine Glucose (UA) Negativemg/dL (NEGATIVE) Urine Ketones Negativemg/dL (NEGATIVE) Urine Occult Blood Negative (NEGATIVE) Urine Nitrite Negative (NEGATIVE) Urine Bilirubin Negative (NEGATIVE) Urine Urobilinogen Normalmg/dL (NORMAL) Urine Leukocyte Esterase Negative (NEGATIVE) Urine RBC 0-2/hpf (0-2) Urine WBC 6-10/hpf (0-5) Urine Epithelial Cells Occasional/hpf (NONE-MOD) Urine Crystals None seen (NONE SEEN) Urine Bacteria Moderate/hpf (NONE-FEW) Urine Hyaline Casts None/lpf (NONE) Urine Granular Casts None seen (NONE SEEN) Urine Waxy Casts None seen (NONE SEEN) Urine Red Blood Cell Casts None seen (NONE SEEN) Urine White Blood Cell Casts None seen (NONE SEEN) Urine Mucus None seen (None Seen) Urine Trichomonas None seen (NONE SEEN) Urine Yeast None (NONE SEEN) Urinalysis Comment None Urine Culture Reflexed Indicated Re-Eval/Medical Decision Med Decision/Clinical Course 41-year-old female history of diverticulitis presenting complaining of left lower quadrant pain 1 day. Patient was diagnosed with diverticulitis 1 month ago completed Cipro Flagyl with resolution of symptoms. Multiple episodes of diverticulitis in the past she reports this feels the same. Abdomen with mild left lower quadrant tenderness no rebound or guarding. WBC is mildly elevated. Urine suggestive of UTI. Given benign abdominal exam do not believe CT abdomen is necessary. Her pain resolved. Treat for UTI and diverticulitis with Cipro Flagyl plans to follow up with her primary doctor 1-2 days return precautions given. Patient agreeable with this plan. Source of Hx: Old records Re-Evaluation/Progress : Time of Eval: 13:45 Patient Status: Condition improved Re-Evaluation/Progress Note: Pt rechecked, who is comfortable. Medication options are addressed. The diagnosis and plan for discharge are discussed. The pt understands and agrees with the plan. All questions are addressed at this time. Counseled Regarding: Diagnosis, Lab results, Need for follow-up, When/why to return to ED Discharge & Departure Primary Impression: Diverticulitis Diverticulitis site: unspecified part of intestinal tract Diverticulitis bleeding: without bleeding Diverticulitis complication: without perforation or abscess Qualified Code: K57.92 - Diverticulitis of intestine, part unspecified, without perforation or abscess without bleeding Additional Impression: UTI (urinary tract infection) Urinary tract infection type: site unspecified Hematuria presence: without hematuria Qualified Code: N39.0 - Urinary tract infection, site not specified Disposition: Home Discharge Condition All VS Reviewed: Yes Condition: Stable Patient Instructions: Diverticulitis (ED), Urinary Tract Infection in Women (ED ) Additional Instructions: Take Flagyl for 14 days as prescribed. Follow up with your primary care physician in one to two days for further evaluation. Return to the emergency department if you experience any new or worsening symptoms such as nausea, vomiting, diarrhea or fever. Referrals: Lilli Costa (PCP) Phil Attestation Portions of this note were transcribed by Kenya Harp. I, Dr. Mckeon personally performed the history, physical exam and medical decision-making; I reviewed and confirmed the accuracy of the information in the transcribed note. Signed by: Phil Shepherd, 02/18/17 and 1351. copies to: Lilli Costa Ben M MD Feb 18, 2017 12:11 KENYA HARP Feb 18, 2017 12:19
[2017-02-18] MEDS ORDERED: 0.9% Sodium Chloride 1,000 ML IV ONE (12:17)
[2017-02-18] MEDS ORDERED: Ondansetron 2 mg/mL 2 mL Inj IVPUSH PRN (12:20)
[2017-02-18 12:44] LABS: BASOPHILS % (AUTO) 0.5 % (0-3); EOSINOPHILS % (AUTO) 4.9 % (0-5); MONOCYTES % (AUTO) 5.4 % (4-12); Mean Corpuscular Hemoglobin 31.3 pg (27.0-35.0); Mean Corpuscular Volume 93.8 fL (81-100); Platelet Count 273 bil/L (150-400)
[2017-02-18] MEDS: HYDROmorphone 0.5 mg/0.5 mL iSecure Syringe IVPUSH PRN ×2 (12:49→13:55)
[2017-02-18 13:25] LABS: APPEARANCE,URINE CLEAR (CLEAR,HAZY); COLOR,URINE YELLOW (YELLOW); OCCULT BLOOD,URINE NEGATIVE (NEGATIVE); UROBILINOGEN,URINE NORMAL (NORMAL)
[2017-02-18] MEDS ORDERED: HYDR-4003 PO (13:47)
[2017-02-18] MEDS ORDERED: METR500T PO (13:47)
[2017-02-18] MEDS ORDERED: CIPR-198 PO (13:47)
[2017-02-18 13:55] VITALS: BP 120/72; PULSE 78; RESP 14; O2SAT 97
== END 2017-02-18 14:03 | disposition home or self-care (01) ==
LOC: SED 11:57
DX: K57.92 Diverticulitis of intestine, part unspecified, without perforation or abscess without bleeding (principal); N39.0 Urinary tract infection, site not specified; F41.9 Anxiety disorder, unspecified; F32.9 Major depressive disorder, single episode, unspecified; F17.200 Nicotine dependence, unspecified, uncomplicated; Z79.899 Other long term (current) drug therapy; Z88.5 Allergy status to narcotic agent
CPT/HCPCS: 36415; 80053; 81000; 83690; 83735; 85025; 87086; 87088; 87147; 96361; 96374; 96375; 96376; 99284; J1170; J2405; J7030

== ENCOUNTER 2017-02-20 10:03 | Emergency (ER) | payer OTHER ==
[~2017-02-20] VITALS: Ht 154.9 cm; Wt 72.7 kg
[2017-02-20 10:06] VITALS: BP 139/95; PULSE 91; RESP 10; O2SAT 97
[2017-02-20] MEDS ORDERED: 0.9% Sodium Chloride 1,000 ML IV ONE (10:24)
[2017-02-20] MEDS ORDERED: Ondansetron 2 mg/mL 2 mL Inj IVPUSH PRN (10:25)
--- NOTE | 2017-02-20 11:08 | ED.REPORT ---
HPI-Abd Pain F 40 and Over Date of Service Feb 20, 2017 ED Provider: Allen Mckeon MD Pt is a 41 y/o female w/ a hx of IBS, diverticulitis, presenting to the ED c/o LLQ abdominal pain onset 2 days ago. She c/o associated very mild nausea, low back pain, constipation for 3 days. She denies fever, vomiting, dysuria, bloody stools. She was seen by me 2 days ago in the ED and was diagnosed with presumed diverticulitis and UTI and was given Flagyl. She returns today due to worsening pain. Nursing Notes Stated Complaint: LOWER STOMACH PAIN Chief Complaint: Female Abdominal Pain Nursing Notes Reviewed: Yes Allergies: Coded Allergies: morphine (Verified Allergy, Severe, Rash,Itching,, 02/18/17) Scheduled Amoxicillin/Clav K 500-125 mg (Augmentin 500) 1 Tab Tab 1 TABLET PO TID Bupropion ER (Wellbutrin XL) 150 Mg Tab.er.24h 150 MG PO DAILY Ciprofloxacin (Ciprofloxacin) 500 Mg Tablet 500 MG PO BID Ciprofloxacin (Ciprofloxacin) 500 Mg Tablet 500 MG PO BID Diclofenac Sodium (Diclofenac Sodium) 1 % Gel..gram. 1 APPLIC TOP HS Duloxetine (Cymbalta) 60 Mg Capsule.dr 60 MG PO DAILY Metronidazole (Flagyl) 500 Mg Tablet 500 MG PO Q8H Metronidazole (Flagyl) 500 Mg Tablet 500 MG PO Q8H Omeprazole (Omeprazole) 20 Mg Capsule.dr 20 MG PO DAILY Polyethylene Glycol 3350 (Miralax) 17 Gm Powd.pack 17 GM PO DAILY Polyethylene Glycol 3350 (Miralax) 17 Gm Powd.pack 17 GM PO HS Pregabalin (Lyrica) 75 Mg Capsule 75 MG PO BID Tamsulosin (Flomax) 0.4 Mg Capsule 0.4 MG PO DAILY Scheduled PRN Hydrocodone-Acetaminophen 5-325 mg (Hydrocodone-Acetaminophen 5-325 mg) 1 Each Tablet 1 TABLET PO QID PRN PRN For Pain Hydrocodone-Acetaminophen 5-325 mg (Hydrocodone-Acetaminophen 5-325 mg) 1 Each Tablet 1 TABLET PO Q4H PRN PRN For Pain Temazepam (Temazepam) 15 Mg Capsule 15 MG PO HS PRN PRN For Insomnia Tramadol (Tramadol) 50 Mg Tablet 50 MG PO Q4 PRN PRN For Pain General Time Seen by MD: 10:18 Chief Complaint Abdominal pain Hx Obtained From: Patient Arrived By: Walk-in Sudden in Onset?: No Onset Occurred: 2 days ago Symptom Duration: Since onset Progression since Onset: Gradually worsening Location: : LLQ Quality: Painful Radiation: : Does not radiate Severity: Current: Moderate Severity: Maximum: Moderate Recent Healthcare: Recent doctor visit, Recent testing, Previous diagnosis Similar Sx Previous: Yes Past Medical History Past Medical History Pedal edema Endometriosis Sleep apnea IBS Diverticulitis Anxiety Hx of previous suicide attempt Reports: Depression, Migraines, Urinary tract infection Past Surgical History Partial colectomy Complete hysterectomy Reports: Appendectomy, Hysterectomy Family History Noncontributory Smoking History Current Every Day Smoker Social History The patient recently moved to the area from [place], [place]. Alcohol Use: "Social" Drug Use: Denies drug use Other Social History: Good social support, Local resident Ambulatory Status Independent Review of Systems Constitutional: Denies: Chills, Fever Respiratory: Denies: Non-productive cough, Shortness of breath Cardiovascular: Denies: Chest pain, Dyspnea on exertion GI: Reports: Abdominal pain, Constipation, Nausea, Denies: Bloody/tarry stool, Vomiting Female: Denies: Dysuria, Urinary frequency Complete sys rev & neg: except as marked. Physical Exam Vital Signs Vital Signs (First) Date Time Temp Pulse Resp B/P Pulse Ox O2 Delivery O2 Flow Rate FiO2 02/20/17 10:06 36.2 91 10 139/95 97 Room Air Initial VS: Reviewed, Vital signs normal Head / Eyes: Atraumatic, Normocephalic, PERRL ENT: Mucous membranes moist, Conjunctiva normal, No scleral icterus Neck: Supple, Full range of motion Extremities: Vascular intact, Neuro intact, No swelling, No tenderness Skin: Warm, Dry, No cyanosis Neurologic: Alert, Oriented, Nonfocal Psychiatric: Mood/affect normal, Behavior normal, Normal thought content General/Constitutional: Awake, Alert, No acute distress, Cooperative, Not toxic appearing Respiratory / Chest: Breath sounds NL, Breath sounds = bilat, No respiratory distress, No rales, No rhonchi, No wheezing, No stridor Cardiovascular: Heart rate NL, Regular rhythm, Heart sounds NL, No gallop, No murmurs, No rubs Abdomen: Atraumatic, Soft, No guarding, No rebound, No distention, No palpable mass Tenderness/Guarding/Rebound: Positive: Tender LLQ... (mild-moderate) Back: Full range of motion, Painless range of motion, No CVA tenderness Interpretation & Diagnostics Lab Results Interpretation Result Diagram: 02/20/17 1140 02/20/17 1140 Test 02/20/17 11:40 02/20/17 12:46 White Blood Count 7.8th/mm3 (3.8-10.1) Red Blood Count 4.12mil/mm3 (3.90-5.20) Hemoglobin 12.9g/dL (12.0-15.6) Hematocrit 37.9% (35.0-46.0) Mean Corpuscular Volume 92.0fL (81-100) Mean Corpuscular Hemoglobin 31.3pg (27.0-35.0) Mean Corpuscular Hemoglobin Concent 34.0% (32.0-37.0) Red Cell Distribution Width 14.5% (12.3-15.4) Platelet Count 271bil/L (150-400) Neutrophils (%) (Auto) 66.9% (40-74) Lymphocytes (%) (Auto) 26.2% (14-46) Monocytes (%) (Auto) 5.1% (4-12) Eosinophils (%) (Auto) 1.3% (0-5) Basophils (%) (Auto) 0.4% (0-3) Sodium Level 141mEq/L (134-144) Potassium Level 3.9mEq/L (3.5-5.2) Chloride Level 106mEq/L (97-108) Carbon Dioxide Level 21mmol/L (18-29) Blood Urea Nitrogen 7mg/dL (6-24) Creatinine 0.49mg/dL (0.57-1.00) Estimat Glomerular Filtration Rate 197mL/min (>59) Glucose Level 117mg/dL (60-99) Calcium Level 9.4mg/dL (8.5-10.1) Magnesium Level 2.1mg/dL (1.6-2.6) Total Bilirubin 0.3mg/dL (0.0-1.2) Aspartate Amino Transf (AST/SGOT) 17U/L (0-50) Alanine Aminotransferase (ALT/SGPT) 21U/L (0-32) Alkaline Phosphatase 82U/L (25-150) Total Protein 7.2g/dL (6.4-8.4) Albumin 3.8g/dL (3.4-5.0) Lipase 31U/L (13-60) Hold Mayo Top Tube Received (Received) Urine Color Straw (YELLOW) Urine Appearance Hazy (CLEAR,HAZY) Urine pH 7.5 (5.0-8.0) Urine Specific Shepherd 1.010 (1.003-1.035) Urine Protein Negativemg/dL (NEG,TRACE) Urine Glucose (UA) Negativemg/dL (NEGATIVE) Urine Ketones Negativemg/dL (NEGATIVE) Urine Occult Blood Negative (NEGATIVE) Urine Nitrite Negative (NEGATIVE) Urine Bilirubin Negative (NEGATIVE) Urine Urobilinogen Normalmg/dL (NORMAL) Urine Leukocyte Esterase Negative (NEGATIVE) Urine RBC 0-2/hpf (0-2) Urine WBC 0-5/hpf (0-5) Urine Epithelial Cells Occasional/hpf (NONE-MOD) Urine Crystals None seen (NONE SEEN) Urine Bacteria None/hpf (NONE-FEW) Urine Hyaline Casts None/lpf (NONE) Urine Granular Casts None seen (NONE SEEN) Urine Waxy Casts None seen (NONE SEEN) Urine Red Blood Cell Casts None seen (NONE SEEN) Urine White Blood Cell Casts None seen (NONE SEEN) Urine Mucus None seen (None Seen) Urine Trichomonas None seen (NONE SEEN) Urine Yeast None (NONE SEEN) Urinalysis Comment None Urine Culture Reflexed Not indicated CT Abd / Pelvis Interpretation Study type: Abdominal CT IV contrast Interpretation / Wet Read by: Interpret - Radiologist Re-Eval/Medical Decision Med Decision/Clinical Course 41-year-old female history of diverticulitis presenting with lower quadrant pain 2 days. She was prescribed Cipro Flagyl for presumed diverticulitis and possible UTI. Pain is persistent and therefore she came back. She has mild left lower quadrant tenderness on exam. No rebound or guarding. Labs are stable. CT shows left small renal stones nonobstructing no ureteral stones. There is no evidence of diverticulitis. She does have constipation. Etiology possibly constipation versus passed stone. She did have a UTI 2 days ago her urine is negative today. Will continue her ciprofloxacin for her UTI. We will add Flomax for kidney stones. MiraLAX for her constipation. Will follow up with primary doctor with return precautions given. I told her to stop her narcotics given the constipation. Counseled Regarding: Diagnosis, Lab results, Need for follow-up, When/why to return to ED Discharge & Departure Primary Impression: Kidney stone Additional Impression: Constipation Constipation type: unspecified constipation type Qualified Code: K59.00 - Constipation, unspecified Disposition: Home Discharge Condition All VS Reviewed: Yes Condition: Stable Patient Instructions: Acute Abdominal Pain (ED) Additional Instructions: The cause of your pain is unclear at this moment but may be caused by kidney stones or constipation. The CT scan was also reassuring. Labs were reassuring. Finish the course of antibiotics. Narcotic pain medications may be causing constipation. I recommend you take Flomax to help pass the kidney stones. Take Miralax for constipation. Return to the emergency department for worsening pain, fever, persistent vomiting, or for other concerning symptoms. Follow-up with your primary care doctor next week if symptoms persist. Referrals: Lilli Costa (PCP) Phil Attestation Portions of this note were transcribed by Timur Terrazas. I, Dr. Mckeon personally performed the history, physical exam and medical decision-making; I reviewed and confirmed the accuracy of the information in the transcribed note. Signed by Phil Smith, 02/20/17 - [id number] copies to: Lilli Costa Ben M MD Feb 20, 2017 11:08 TIMUR TERRAZAS Feb 20, 2017 11:12
[2017-02-20] MEDS: HYDROmorphone 0.5 mg/0.5 mL iSecure Syringe IVPUSH PRN ×3 (11:46→14:01)
[2017-02-20 11:47] VITALS: BP 136/88; PULSE 75; RESP 20; O2SAT 94
[2017-02-20 11:55] LABS: BASOPHILS % (AUTO) 0.4 % (0-3); EOSINOPHILS % (AUTO) 1.3 % (0-5); MONOCYTES % (AUTO) 5.1 % (4-12); Mean Corpuscular Hemoglobin 31.3 pg (27.0-35.0); NEUTROPHILS % (AUTO) 66.9 % (40-74); Platelet Count 271 bil/L (150-400)
[2017-02-20 12:28] LABS: Magnesium 2.1 mg/dL (1.6-2.6)
[2017-02-20 13:03] LABS: APPEARANCE,URINE HAZY (CLEAR,HAZY); COLOR,URINE STRAW (YELLOW); OCCULT BLOOD,URINE NEGATIVE (NEGATIVE); PH,URINE 7.5 (5.0-8.0); UROBILINOGEN,URINE NORMAL (NORMAL)
[2017-02-20 14:36] VITALS: BP 137/86; PULSE 83; RESP 20; O2SAT 97
--- NOTE | 2017-02-20 14:41 | DRSVH ---
PROCEDURE: CT ABDOMEN AND PELVIS WITH CONTRAST ([id number]) INDICATIONS: 41 year-old female with left lower quadrant abdominal pain and history of diverticulitis . TECHNIQUE: After the administration of intravenous contrast, 5 mm thick sections acquired from the diaphragm to the symphysis. 5 mm coronal and sagittal reformats were acquired. For radiation dose reduction, the following was used: automated exposure control, adjustment of mA and/or kV according to patient siz e. COMPARISON: [facility], CT, CT ABD PELVIS W CON, 12/26/2016, 14:38. [facility], CT, CT ABD PELVIS W CON, 07/06/2016, 19:52. [facility], CT, ABD/PELVIS W/CON (PNL), 03/16/2015, 17:15. [facility], CT, ABD/PELVIS W/CON (PNL), 05/13/2013, 15:33. [facility], CT, ABD/PELVIS W/CON (PNL), 04/21/2013, 21:09. [facility], CT, ABD/PELVIS W/ CON (PNL), 03/07/2013, 3:40. [facility], CT, KUB - CT ([facility]), 03/04/2013, 20:02. [facility], CT, ABD/PELVIS W/CON (PNL), 12/19/2012, 19:21. [facility], CT, ABD/PELVIS W/CON (PNL), 12/06/2012, 11:58. [facility], CT, ABD/PELVIS W/CON (PNL), 05/15/2011, 11:39. FINDINGS: Image quality: There is metallic streak artifact from cholecystectomy and appendectomy clips, obscuri ng adjacent soft tissues. ABDOMEN: Lung bases: Lung bases are clear. Heart size is normal. Solid organs: Liver and spleen are normal in size and enhancement. Gallbladder is surgically absent . Biliary system is non dilated. Pancreas enhances normally. No adrenal nodules. Kidneys demonstr ate normal size and enhancement, without hydronephrosis. Several punctate nonobstructing left renal s tones are present. Peritoneum and bowel: Bowel loops demonstrate normal wall thickness and caliber. Patient is status post appendectomy. There is moderate stool throughout the colon. No free fluid or air. Nodes and vessels: No retroperitoneal or mesenteric adenopathy by size criteria. Aorta and inferior vena cava are normal in size, with mild aortic atherosclerosis. Miscellaneous: No ventral hernias. PELVIS: Genitourinary: Bladder wall thickness is normal. Miscellaneous: No inguinal hernias or adenopathy. Bones: No suspicious bony lesions. No vertebral body compression fractures. There is mid and lower lumbar spine disc degeneration. IMPRESSION: 1. No acute findings to explain left lower quadrant abdominal pain. 2. Moderate stool throughout the colon may suggest constipation. 3. Several punctate nonobstructing left renal stones. Dictated by: Adam Staley M.D. on 02/20/2017 at 13:33 Approved by: Adam Staley M.D. on 02/20/2017 at 13:39
[2017-02-20] MEDS ORDERED: TAMS0.4C98 PO (14:48)
[2017-02-20] MEDS ORDERED: POLY17PO6 PO (14:48)
[2017-02-20 15:24] VITALS: BP 128/86; PULSE 82; RESP 20; O2SAT 96
== END 2017-02-20 15:25 | disposition home or self-care (01) ==
LOC: SED 10:03
DX: N20.0 Calculus of kidney (principal); K59.00 Constipation, unspecified; F17.200 Nicotine dependence, unspecified, uncomplicated; Z90.710 Acquired absence of both cervix and uterus; Z79.899 Other long term (current) drug therapy; Z88.5 Allergy status to narcotic agent
CPT/HCPCS: 36415; 74177; 80053; 81000; 81025; 83690; 83735; 85025; 96361; 96374; 96375; 96376; 99285; J1170; J2405; J7030; Q9967

== ENCOUNTER 2017-05-14 16:52 | Emergency (ER) | payer OTHER ==
[~2017-05-14] VITALS: Ht 154.9 cm; Wt 72.7 kg
[~2017-05-14 16:52] MED LIST changes: +TAMS0.4C98 PO
[2017-05-14 16:55] VITALS: BP 130/91; PULSE 112; RESP 14; O2SAT 99
[2017-05-14] MEDS ORDERED: 0.9% Sodium Chloride 1,000 ML IV ONE ×2 (17:56→19:12)
[2017-05-14] MEDS ORDERED: MetoCLOpramide 5 mg/mL 2 mL Inj IVPUSH ONE (18:00)
[2017-05-14 19:08] VITALS: BP 122/81; PULSE 88; RESP 16; O2SAT 98
[2017-05-14] MEDS ORDERED: Dexamethasone 10 mg/mL Inj IVPUSH ONE (19:15)
[2017-05-14] MEDS ORDERED: Haloperidol 5 mg/mL Inj IVPUSH ONE (19:15)
--- NOTE | 2017-05-14 19:15 | ED.REPORT ---
HPI-Headache Date of Service May 14, 2017 ED Provider: Jaden Gutierrez MD Pt is a 41 year old female with a hx of migraine headaches presenting to the ED complaining of a waxing and waning right sided headache onset 4-5 days ago. Associated symptoms include nausea and non-vertiginous dizziness. Denies falling , hitting her head, fever, neck stiffness, focal weakness, or numbness. The pain is exacerbated by light and sound. Pt sees Dr. Lion for her headaches, and saw him today. She has not yet filled her prescriptions. The headache was gradual in onset. This is not the worst headache of her life. This is similar to previous migraine headaches. Nursing Notes Stated Complaint: MIGRAINE Chief Complaint: Headache Nursing Notes Reviewed: Yes Allergies: Coded Allergies: morphine (Verified Allergy, Severe, Rash,Itching,, 02/18/17) Scheduled Amoxicillin/Clav K 500-125 mg (Augmentin 500) 1 Tab Tab 1 TABLET PO TID Bupropion ER (Wellbutrin XL) 150 Mg Tab.er.24h 150 MG PO DAILY Ciprofloxacin (Ciprofloxacin) 500 Mg Tablet 500 MG PO BID Ciprofloxacin (Ciprofloxacin) 500 Mg Tablet 500 MG PO BID Diclofenac Sodium (Diclofenac Sodium) 1 % Gel..gram. 1 APPLIC TOP HS Duloxetine (Cymbalta) 60 Mg Capsule. 60 MG PO DAILY Metronidazole (Flagyl) 500 Mg Tablet 500 MG PO Q8H Metronidazole (Flagyl) 500 Mg Tablet 500 MG PO Q8H Omeprazole (Omeprazole) 20 Mg Capsule.dr 20 MG PO DAILY Polyethylene Glycol 3350 (Miralax) 17 Gm Powd.pack 17 GM PO DAILY Polyethylene Glycol 3350 (Miralax) 17 Gm Powd.pack 17 GM PO HS Pregabalin (Lyrica) 75 Mg Capsule 75 MG PO BID Tamsulosin (Flomax) 0.4 Mg Capsule 0.4 MG PO DAILY Scheduled PRN Hydrocodone-Acetaminophen 5-325 mg (Hydrocodone-Acetaminophen 5-325 mg) 1 Each Tablet 1 TABLET PO QID PRN PRN For Pain Hydrocodone-Acetaminophen 5-325 mg (Hydrocodone-Acetaminophen 5-325 mg) 1 Each Tablet 1 TABLET PO Q4H PRN PRN For Pain Temazepam (Temazepam) 15 Mg Capsule 15 MG PO HS PRN PRN For Insomnia Tramadol (Tramadol) 50 Mg Tablet 50 MG PO Q4 PRN PRN For Pain General Time Seen by MD: 17:43 Chief Complaint Migraine headache Hx Obtained From: Patient Arrived By: Walk-in Sudden in Onset?: No Onset Occurred: 5 days ago Symptom Duration: Waxes and wanes Location: : Occipital right Quality: Painful Severity: Current: Severe Severity: Maximum: Severe Recent Healthcare: No recent doctor visit, No recent hospitalization Similar Sx Previous: Yes Past Medical History Past Medical History Pedal edema Endometriosis Sleep apnea IBS Diverticulitis Anxiety Hx of previous suicide attempt Reports: Depression, Migraines, Urinary tract infection Past Surgical History Partial colectomy Complete hysterectomy Reports: Appendectomy, Hysterectomy Family History Noncontributory Smoking History Current Every Day Smoker Social History The patient recently moved to the area from [place], [place]. Alcohol Use: "Social" Drug Use: Denies drug use Other Social History: Good social support, Local resident Ambulatory Status Independent Review of Systems Constitutional: Denies: Fever GI: Reports: Nausea, Vomiting Musculoskeletal: Denies: Neck pain Neurologic: Reports: Dizziness, Headache, Denies: Focal weakness, Numbness Complete sys rev & neg: except as marked. Physical Exam Initial Vital Signs Vital Signs (First) Date Time Temp Pulse Resp B/P Pulse Ox O2 Delivery O2 Flow Rate FiO2 05/14/17 16:55 37.1 112 14 130/91 99 Room Air Initial VS: Reviewed ENT: Mucous membranes moist, Conjunctiva normal, No scleral icterus Respiratory: Breath sounds normal, Clear to auscultation, No respiratory distress Cardiovascular: Regular rate & rhythm, Heart sounds normal, Intact distal pulses Abdomen / GI: Soft, Non-tender, No guarding, No rebound, No distention Extremities: Vascular intact, Neuro intact, No swelling, No tenderness Skin: Warm, Dry, No cyanosis Psychiatric: Mood/affect normal, Behavior normal, Normal thought content General/Constitutional: Awake, Alert, No acute distress Head / Eyes: Atraumatic, Normocephalic, PERRL, EOMI Neck: Atraumatic, Supple, No meningismus, Full range of motion Neurologic: Oriented X3, Speech NL, No motor deficits, No sensory deficits, CN II - XII intact, Cerebellar NL, Memory NL Pt is speaking in full sentences. No pronator drift. No lateralizing neurological deficits. Re-Eval/Medical Decision Med Decision/Clinical Course Pt is a 41 year old female with a hx of migraine headaches presenting to the ED complaining of a waxing and waning right sided headache onset 4-5 days ago. Associated symptoms include nausea and non-vertiginous dizziness. Denies falling , hitting her head, fever, neck stiffness, focal weakness, or numbness. The pain is exacerbated by light and sound. Pt sees Dr. Lion for her headaches, and saw him today. She has not yet filled her prescriptions. The headache was gradual in onset. This is not the worst headache of her life. This is similar to previous migraine headaches. Our primary and secondary assessment reveals an awake, alert patient in no acute distress. Hemodynamically stable and afebrile. Exam reveals normal neurologic exam. Suspect the patient's headache represents a migraine or tension type headache. Considered other causes of headache to include: Subdural hemorrhage, subarachnoid hemorrhage, HEAD WAITRESS tumor, meningitis, encephalitis, venous sinus thrombosis, dissection, temporal arteritis, intracranial hypertension ( psuedotumor cerebri), sinusitis or cervicalgia, although these are less likely based on the history, exam, lab, and radiographic findings as noted above. Based on this, I feel that imaging would be low yield and is not warranted at this time. Discussed the risks and benefits of this with the patient who is in agreement. Also discussed with the patient at length that if symptoms change, worsen, or persist, should return to the ER for reevaluation. They understand and agree with the plan. The patient was given the below medications for symptom control. 1 L saline, 30 mg Toradol, 10 mg Reglan, 25 mg Benadryl Thereafter, the patient reported moderate symptom improvement and requested further management of her headache. She was thereafter treated with IV Decadron and 2 mg of IV Haldol with dramatic improvement in her symptoms. Patient is advised to fill her prescriptions were provided today by Dr. lion and follow up with her neurologist and primary care physician for ongoing headache management. Prior to discharge follow-up and return precautions were reviewed in detail with the patient who verbalized understanding and agreement with the plan. The patient was discharged in stable condition. Re-Evaluation/Progress : Time of Eval: 19:27 )( Patient Status: Condition improved Re-Evaluation/Progress Note: Discussed plan for discharge. Pt understands and agrees. Counseled Regarding: Diagnosis, Lab results, Need for follow-up, When/why to return to ED Discharge & Departure Impression: Primary Impression: Migraine Migraine type: unspecified Status migrainosus presence: without status migrainosus Intractability: not intractable Qualified Code: G43.909 - Migraine, unspecified, not intractable, without status migrainosus Additional Impressions: Sensitivity to light Sound sensitivity Laterality: unspecified laterality Qualified Code: H83.3X9 - Noise effects on inner ear, unspecified ear Disposition: Home Discharge Condition All VS Reviewed: Yes Condition: Improved Patient Instructions: Migraine Headache (ED) Additional Instructions: Thank you for seeking care at the emergency room. Our primary goal today in the ED was to evaluate you for any life-threatening conditions. Your evaluation was reassuring. You should follow-up with your primary doctor in the next week. Fill the prescriptions from Dr. Lion. You should return to the ED immediately if you develop fevers, vomiting, cough , shortness of breath, chest pain, lightheadedness, weakness or any other concerning signs or symptoms. Thank you for letting us partake in your care today. Referrals: Lilli Costa (PCP) Dannieibflako Attestation Portions of this note were transcribed by Jojo Ford. I, Dr. Gutierrez personally performed the history, physical exam and medical decision-making; I reviewed and confirmed the accuracy of the information in the transcribed note. Signed by: Phil Elkins, 05/14/2017. copies to: Lilli Costa Beck O MD May 14, 2017 19:15 JOJO FORD May 14, 2017 19:18
[2017-05-14 19:54] VITALS: BP 105/64; PULSE 79; RESP 20; O2SAT 97
== END 2017-05-14 19:55 | disposition home or self-care (01) ==
LOC: SED 16:52
DX: G43.909 Migraine, unspecified, not intractable, without status migrainosus (principal); R42 Dizziness and giddiness; F41.8 Other specified anxiety disorders; F17.200 Nicotine dependence, unspecified, uncomplicated; Z90.49 Acquired absence of other specified parts of digestive tract; Z98.890 Other specified postprocedural states; Z88.5 Allergy status to narcotic agent
CPT/HCPCS: 96361; 96374; 96375; 99284; G0463; J1100; J1200; J1630; J1885; J2765; J7030